=== PATIENT | male | born 1955 | race Caucasian/White ===

== ENCOUNTER 2016-11-11 07:25 | Emergency (ER) | payer OTHER ==
--- NOTE | 2016-11-11 07:50 | EDM.PDOC ---
[id number] 4d RIGHT SHOULDER INJURY Time Seen by Provider: 11/11/16 07:48 Source: Reports: Patient History Limitations: Reports: No limitations - History of Present Illness INITIAL COMMENTS - FREE TEXT/NARRATIVE: 61-year-old male reports that he slipped and fell on the icy stairs while walking down the spotting with coffee in his right hand. Landed hard on his right elbow. He suffers pain in the proximal aspect of his right humerus. Denies hitting his head or hurting his neck or ribs. When the pain is in the right upper shoulder area. He is unable to abduct the arm. Of note he is right- hand dominant. Injury occurred about 0710 hours. Patient took 3 aspirins after injury and states that it seems to be helping the pain somewhat. Symptom Onset Date: 11/11/16 Symptom Onset Time: 07:10 Occurred When: just prior to arrival Occurred Where: other Method of Injury: fall Severity: moderate Pain/Injury Location: Reports: upper extremity, right (Right upper chimney proximal humerus area.) Consciousness: Reports: no loss of consciousness, remembers incident, remembers coming to hosp Associated Symptoms: Reports: no other symptoms Allergies/ADRs: Allergies No Known Allergies Allergy (Verified 11/11/16 07:34) Home Medications: Ambulatory Orders Bp Pill? 11/11/16 oxyCODONE HCl/Acetaminophen [Percocet 5-325 mg Tablet] 1 - 2 each PO Q4H PRN # 20 tablet 11/11/16 Past Medical History Cardiovascular History: Reports: Hypertension Social & Family History - Living Situation & Occupation Occupation: employed Review of Systems - Review of Systems Review Of Systems: See Below Constitutional: Reports: no symptoms Eyes: Reports: no symptoms Ears: Reports: no symptoms Nose: Reports: no symptoms Mouth/Throat: Reports: no symptoms Respiratory: Reports: No Symptoms Cardiovascular: Reports: no symptoms GI/Abdominal: Reports: No symptoms Genitourinary: Reports: no symptoms Musculoskeletal: Reports: other (Right upper) Skin: Reports: no symptoms ( arm pain. See history of present illness) Neurological: Reports: No Symptoms Psychiatric: Reports: no symptoms Trauma Exam - Physical Exam Exam: See Below Exam Limited By: Other General Appearance: Reports: WD/WN, mild distress Head: Reports: atraumatic, normocephalic Throat/Mouth: Reports: Normal inspection, Normal lips, Normal oropharynx Neck: Reports: non-tender, full range of motion, normal alignment, normal inspection Respiratory Exam: Reports: no respiratory distress, lungs clear, normal breath sounds, no accessory muscle use Cardiovascular: Reports: normal peripheral pulses, regular rate, rhythm, no edema, no gallop, no murmur GI/Abdominal: Reports: normal bowel sounds, soft, non tender, no organomegaly Back: Reports: full range of motion, normal inspection, non-tender. Denies: CVA tenderness (R), CVA tenderness (L) Extremities: Reports: other (Attention to the right upper extremity reveals good pulses at the wrist. He has full pronation supination at the elbow. He is unable to abduct the arm without severe pain in the shoulder. Palpation of the clavicle appears to be intact there is no pain localized to the a.c. joint. Pain appears to be localized to the surgical much of the humerus.) Skin: Reports: Normal color, Warm/dry - [place] Coma Score Best Eye Response ([place]): (4) open spontaneously Best Verbal Response ([place]): (5) oriented Best Motor Response ([place]): (6) obeys commands [place] Total: 15 Course - Vital Signs Last Recorded V/S: Last Vital Signs Temp 36.3 C 11/11/16 07:34 Pulse 70 11/11/16 10:20 Resp 16 11/11/16 10:20 BP 171/99 H 11/11/16 10:20 Pulse Ox 96 11/11/16 10:20 - Orders/Labs/Meds Orders: Active Orders 24 hr Category Date Time Status Shoulder wo Cont Rt [CT] Stat Exams 11/11/16 08:27 Taken - Radiology Interpretation Free Text/Narrative:: 61-year-old male presents the ED after slipping and falling down 2 stairs this morning. He landed on his right elbow but has pain in the proximal aspect of his right humerus. He is unable to abduct the arm since injury. Injury occurred about 0710 hours this morning. No other injuries could be identified on examination. - Re-Assessments/Exams Free Text/Narrative Re-Assessment/Exam: 11/11/16 08:28 x-rays of the right humerus do not reveal any obvious fractures of the surgical neck or humeral head. There is one view that suggests humeral head may be a little bit more posterior than one would expect. 2 wide view is not done. On reassessment the patient is unable to dorsiflex at all and unable to abduct more than 40. Therefore CT of his humerus and shoulder to be done. 11/11/16 10:00 CT of the right shoulder did not reveal any fractures. There some degenerative changes at the acromioclavicular joint as well as in the humeral head but no discrete fractures. Therefore the patient will be placed in a shoulder immobilizer for the next week to 7 days and then have him reassessed as far as rotator cuff range of motion in 10 days' time. Will give him Percocet tabs 5-325 one or 2 or 4-6 hours for pain relief. Advised Aleve 2 tablets every 8 hours for pain relief and inflammation relief. Advised followup with orthopedic surgeon in 12-14 days time for assessment of range of motion and rotator cuff assessment. Departure - Departure Time of Disposition: 10:01 Disposition: Home, Self-Care 01 Condition: fair Clinical Impression: Strain of right shoulder Qualifiers: Encounter type: initial encounter Qualified Code(s): S46.911A - Strain of unspecified muscle, fascia and tendon at shoulder and upper arm level, right arm , initial encounter Prescriptions: oxyCODONE HCl/Acetaminophen [Percocet 5-325 mg Tablet] 1 - 2 each PO Q4H PRN # 20 tablet PRN Reason: pain relief. Instructions: Muscle Strain, [id number] Referrals: Daniel Mari MD [Primary Care Provider] - Forms: ED Department Discharge Additional Instructions: Evaluation in the emergency department today after slipping and falling with direct blow to the right elbow and injury to the upper right arm shoulder area. Range of motion is substantially reduced with inability to forward flex or abduct past 40. X-rays did not reveal any obvious fractures. CT scan was done to rule out a posterior dislocation of the shoulder and none was identified. Also CT did not identify any hairline fractures that were not visualized on plain films. Therefore injury appears to be strain. Plan right shoulder immobilizer on during the day and off at night or may wear to bed as well if more carpal. Suggest using this for 3-7 days. If you do not have full range of motion of your shoulder by dates and then suggest followup with orthopedic surgeon so that rotator cuff tendons can be assessed. Suggest Aleve 2 tablets every 8 hours to relieve pain and inflammation. Percocet tablets 5 325 mg one or 2 every 4-6 hours for pain not relieved by Aleve alone. Of note cannot take strong pain medication if you're operating a motor vehicle et cetera. Ice pack to the shoulder for one half hour out of every 4 hours today and tomorrow may reduce the swelling in the deltoid musculature. - My Orders Last 24 Hours: My Active Orders 11/11/16 08:27 Shoulder wo Cont Rt [CT] Stat - Assessment/Plan Last 24 Hours: My Active Orders 11/11/16 08:27 Shoulder wo Cont Rt [CT] Stat
--- NOTE | 2016-11-11 08:39 | CR ---
Right humerus: 2 views of the right humerus were obtained. Comparison: No previous study. No fracture or other bony abnormality is seen. Impression: 1. No bony abnormality is seen on right humerus study. Diagnostic code #1
[2016-11-11 10:31] VITALS: BP 171/99
--- NOTE | 2016-11-12 06:43 | CT ---
CT right shoulder Technique: Multiple axial sections were obtained through the right shoulder. Reconstructed coronal and sagittal images were reviewed. Comparison: Previous right humerus study performed earlier on the same day. Findings: Clavicle shows no fracture. Upper visualized ribs appear intact. Upper right lung is clear. Scapula shows no fracture. Small degenerative cyst is noted within the anterior glenoid. Small cyst also seen within the undersurface of the acromion process. No fracture is seen within the proximal humerus. Impression: 1. Small degenerative cyst within the anterior glenoid and within the undersurface of the acromion process. 2. Nothing acute is identified on CT study of the right shoulder. Diagnostic code #2 MTDD
== END 2016-11-11 10:20 | disposition home or self-care (01) ==
LOC: JD.ED 07:25
DX: S46.911A Strain of unspecified muscle, fascia and tendon at shoulder and upper arm level, right arm, initial encounter (principal); W10.8XXA Fall (on) (from) other stairs and steps, initial encounter; I10 Essential (primary) hypertension
CPT/HCPCS: 73060-26-RT; 73060-RT; 73200-26-RT; 73200-RT; 99283

== ENCOUNTER 2017-04-11 00:01 | Emergency (ER) | payer OTHER ==
[2017-04-11 00:10] VITALS: BP 190/102
--- NOTE | 2017-04-11 00:25 | EDM.PDOC ---
ED HPI GENERAL MEDICAL PROBLEM - General Chief Complaint: Gastrointestinal Problem Stated Complaint: [facility] Time Seen by Provider: 04/11/17 00:02 Source of Information: Reports: Patient History Limitations: Reports: No Limitations - History of Present Illness INITIAL COMMENTS - FREE TEXT/NARRATIVE: This is a 61-year-old male. He's been having intermittent left lower abdominal pain for the last several days. Around 2:30 PM today marked increased pain in the left lower quadrant with tenderness. There was no nausea vomiting no diarrhea no blood in his stools and no constipation. She denies any fever or chills. Since 2:30 PM the pain is gotten severe enough to come to the ER. He has a history of diverticulitis with a rupture back in 2011 requiring surgery. He is not certain whether this was going on now and he does have a history of kidney stones in the past but he says it doesn't feel like a kidney stone. He denies any other acute symptoms recently. Treatments [facility]AM[employer]TER [employer]: Reports: NSAIDS - Related Data Allergies Allergy/AdvReac Type Severity Reaction Status Date / Time No Known Allergies Allergy Verified 11/11/16 07:34 Home Meds: Home Meds oxyCODONE HCl/Acetaminophen [Percocet 5-325 mg Tablet] 1 - 2 each PO Q4H PRN # 20 tablet 11/11/16 [Rx] Losartan [Cozaar] 100 mg PO DAILY 04/11/17 [History] Past Medical History Cardiovascular History: Reports: Hypertension Gastrointestinal History: Reports: Diverticulosis - Infectious Disease History Infectious Disease History: Reports: Chicken Pox - Past Surgical History HEENT Surgical History: Reports: Oral Surgery GI Surgical History: Reports: Other (See Below) Other GI Surgeries/Procedures: rupture repair of diverticuli Musculoskeletal Surgical History: Reports: Joint Replacement, Shoulder Replacement Social & Family History - Family History Family Medical History: Noncontributory - Tobacco Use Smoking Status *Q: Current Every Day Smoker Years of Tobacco use: 30 Packs/Tins Daily: 0.2 Second Hand Smoke Exposure: No - Caffeine Use Caffeine Use: Reports: Coffee - Recreational Drug Use Recreational Drug Use: No - Living Situation & Occupation Occupation: Employed ED ROS GENERAL - Review of Systems Review Of Systems: See Below Constitutional: Denies: Fever, Chills HEENT: Reports: No Symptoms Respiratory: Reports: No Symptoms Cardiovascular: Reports: No Symptoms Endocrine: Reports: No Symptoms GI/Abdominal: Reports: Abdominal Pain. Denies: Black Stool, Bloody Stool, Constipation, Diarrhea, Nausea, Vomiting : Reports: No Symptoms Musculoskeletal: Reports: No Symptoms Skin: Reports: No Symptoms Neurological: Reports: No Symptoms Psychiatric: Reports: No Symptoms Hematologic/Lymphatic: Reports: No Symptoms ED EXAM, GI/ABD - Physical Exam Exam: See Below Exam Limited By: No Limitations General Appearance: Alert, WD/WN, Mild Distress Eyes: Bilateral: Normal Appearance Ears: Normal External Exam Nose: Normal Inspection Throat/Mouth: Normal Lips, Normal Voice, No Airway Compromise Head: Normocephalic Neck: Supple Respiratory/Chest: No Respiratory Distress, Lungs Clear, Normal Breath Sounds Cardiovascular: Regular Rate, Rhythm, No Murmur GI/Abdominal Exam: Other (Bowel sounds are absent, he seems to be tender all over but markedly so in the left lower quadrant with guarding and some mild rigidity noted, I could not determine if he has rebound because he kept pushing my hand away, he also has soreness in the right lower quadrant but pushing on the right lower quadrant makes the left lower quadrant seemed to hurt more) Back Exam: Full Range of Motion Extremities: Normal Inspection, Normal Range of Motion Neurological: Alert, Oriented Psychiatric: Anxious Skin Exam: Warm, Dry Course - Vital Signs Last Recorded V/S: Last Vital Signs Temp 97.9 F 04/11/17 00:03 Pulse 60 04/11/17 00:03 Resp 17 04/11/17 00:03 BP 190/102 H 04/11/17 00:03 Pulse Ox 92 L 04/11/17 00:03 - Orders/Labs/Meds Orders: Active Orders 24 hr Category Date Time Status Abdomen Pelvis w Cont [CT] Stat Exams 04/11/17 00:21 Taken CULTURE BLOOD [BC] Stat Lab 04/11/17 03:09 Received CULTURE BLOOD [BC] Stat Lab 04/11/17 03:15 Received Sodium Chloride 0.9% [Saline Flush] Med 04/11/17 01:30 Active 10 ml FLUSH ONETIME PRN Blood Culture x2 Reflex Set [OM.PC] Stat Oth 04/11/17 02:47 Ordered Medication Orders Sodium Chloride (Saline Flush) 10 ml FLUSH ONETIME PRN PRN Reason: IV FLUSH Last Admin: 04/11/17 02:03 Dose: 10 ml Labs: Laboratory Tests 04/11/17 04/11/17 Range/Units 00:36 00:36 WBC 19.62 H (4.23-9.07) K/mm3 RBC 5.44 (4.63-6.08) M/mm3 Hgb 16.0 (13.7-17.5) gm/L Hct 47.1 (40.1-51.0) % MCV 86.6 (79.0-92.2) fl MCH 29.4 (25.7-32.2) pg MCHC 34.0 (32.2-35.5) g/dl RDW Std Deviation 41.7 (35.1-43.9) fL Plt Count 254 (163-337) K/mm3 MPV 9.3 L (9.4-12.3) fl Neut % (Auto) 92.0 H (34.0-67.9) % Lymph % (Auto) 4.1 L (21.8-53.1) % [place] % (Auto) 3.4 L (5.3-12.2) % Eos % (Auto) 0.1 L (0.8-7.0) Baso % (Auto) 0.1 (0.1-1.2) % Neut # (Auto) 18.07 H (1.78-5.38) K/mm3 Lymph # (Auto) 0.80 L (1.32-3.57) K/mm3 [place] # (Auto) 0.67 (0.30-0.82) K/mm3 Eos # (Auto) 0.01 L (0.04-0.54) K/mm3 Baso # (Auto) 0.02 (0.01-0.08) K/mm3 Manual Slide Review Normal smear Sodium 138 (136-145) mEq/L Potassium 4.2 (3.5-5.1) mEq/L Chloride 103 (98-107) mEq/L Carbon Dioxide 26 (21-32) mEq/L Anion Gap 13.2 (5-15) BUN 22 H (7-18) mg/dL Creatinine 1.3 (0.7-1.3) mg/dL Est Cr Clr Drug Dosing 53.85 mL/min Estimated GFR (MDRD) 56 (>60) mL/min BUN/Creatinine Ratio 16.9 (14-18) Glucose 172 H (80-115) mg/dL Calcium 9.3 (8.5-10.1) mg/dL Total Bilirubin 0.6 (0.2-1.0) mg/dL AST 16 (15-37) U/L ALT 23 (16-63) U/L Alkaline Phosphatase 101 (46-116) U/L Total Protein 8.4 H (6.4-8.2) g/dl Albumin 4.6 (3.4-5.0) g/dl Globulin 3.8 gm/dL Albumin/Globulin Ratio 1.2 (1-2) Lipase 129 (73-393) U/L Meds: Medications Generic Name Dose Route Start Last Admin Trade Name Freq PRN Reason Stop Dose Admin Sodium Chloride 10 ml 04/11/17 01:30 04/11/17 02:03 Saline Flush FLUSH 10 ml ONETIME PRN Administration IV FLUSH Discontinued Medications Generic Name Dose Route Start Last Admin Trade Name Freq PRN Reason Stop Dose Admin Diatrizoate Meglum/Diatrizoate Sod 90 ml 04/11/17 01:30 04/11/17 02:03 Gastrografin 37% PO 04/11/17 01:31 90 ml ONETIME ONE Administration Hydromorphone HCl 1 mg 04/11/17 02:24 04/11/17 02:30 Dilaudid IVPUSH 04/11/17 02:25 1 mg ONETIME ONE Administration Levofloxacin/Dextrose 750 mg/ 150 mls @ 100 mls/hr 04/11/17 02:50 04/11/17 03 :18 Premix IV 04/11/17 04:19 100 mls/hr ONETIME ONE Administration Iopamidol 125 ml 04/11/17 01:30 04/11/17 02:02 Isovue-300 (61%) IVPUSH 04/11/17 01:31 125 ml ONETIME ONE Administration - Radiology Interpretation Free Text/Narrative:: CT scan of the abdomen with contrast shows a duplex left kidney with moderate to severe left-sided hydronephrosis and it looks to be acute on chronic UPJ obstruction there is some perinephric stranding that left kidney suggesting infection - Re-Assessments/Exams Free Text/Narrative Re-Assessment/Exam: 04/11/17 03:39 I spoke to the patient regarding the CT scan results and the blood work. He wishes to be transferred down to [facility] for further evaluation and treatment. I spoke to Dr. Nieves as well as the urologist Dr. Montejo regarding the patient and Dr. Nieves agrees to accept the patient in transport from our facility to [facility]. He will be a direct admit. 04/11/17 04:30 [place] [facility] here to transport the patient to [facility] Departure - Departure Time of Disposition: 03:41 Disposition: DC/Tfer to [facility] 02 Condition: Good Clinical Impression: Hydronephrosis, left, Pyelonephritis, acute, Left sided abdominal pain Leukocytosis Qualifiers: Leukocytosis type: unspecified Qualified Code(s): D72.829 - Elevated white blood cell count, unspecified - Discharge Information Additional Instructions: I spoke with Dr. Nieves and she agrees to accept the patient in transport for further evaluation and treatment as a direct admit. ED Communication - ED Communication Date/Time Date: 04/11/17 Time Called: 03:43 - Discussed Case With (1) Discussed Case With (1): Admitting Provider Person/s Notified (1): Dr. Nieves (Agrees to accept in transport) - My Orders Last 24 Hours: My Active Orders 04/11/17 00:21 Abdomen Pelvis w Cont [CT] Stat 04/11/17 01:30 Sodium Chloride 0.9% [Saline Flush] 10 ml FLUSH ONETIME PRN 04/11/17 02:47 Blood Culture x2 Reflex Set [OM.PC] Stat 04/11/17 03:09 CULTURE BLOOD [BC] Stat 04/11/17 03:15 CULTURE BLOOD [BC] Stat - Assessment/Plan Last 24 Hours: My Active Orders 04/11/17 00:21 Abdomen Pelvis w Cont [CT] Stat 04/11/17 01:30 Sodium Chloride 0.9% [Saline Flush] 10 ml FLUSH ONETIME PRN 04/11/17 02:47 Blood Culture x2 Reflex Set [OM.PC] Stat 04/11/17 03:09 CULTURE BLOOD [BC] Stat 04/11/17 03:15 CULTURE BLOOD [BC] Stat
[2017-04-11] MEDS ORDERED: Diatrizoate Meglumine/Diatrizoate Sodium 37% 120 ML Bottle PO ONE (01:30)
[2017-04-11] MEDS ORDERED: Sodium Chloride 0.9% 10 ML Syringe FLUSH PRN (01:30)
[2017-04-11] MEDS ORDERED: Iopamidol 612 MG/ML 150 ML Bottle IVPUSH ONE (01:30)
[2017-04-11] MEDS ORDERED: HYDROmorphone 1 MG/ML Syringe IVPUSH ONE (02:24)
[2017-04-11] MEDS ORDERED: Levofloxacin/Dextrose 5%-Water 750 MG in Premix Bag 1 BAG IV ONE (02:50)
--- NOTE | 2017-04-12 17:59 | CT ---
CT abdomen and pelvis Technique: Multiple axial sections were obtained from above the dome of the diaphragm inferiorly through the pubic symphysis. Delayed images were also obtained through the abdomen and pelvis. Comparison: Previous noncontrast CT abdomen and pelvis exam of 03/28/12. Findings: Small portion of the visualized lung bases shows nothing acute. Small low-density lesion is noted within the upper right lobe of the liver measuring approximately 8 mm. This is increased in size from prior CT exam but most likely due to small cyst. Larger abnormality identified more inferiorly within the right lobe of the liver measuring 2.5 cm which becomes isodense to the liver on delayed images most likely due to hemangioma although further follow-up will be suggested. No additional abnormality appreciated within the liver. Spleen appears within normal limits. Parapelvic cysts are noted within both kidneys. Left kidney shows a duplicated collecting system. Extrarenal pelvis is noted of the lower pole moiety which is dilated which is felt to represent chronic UPJ functional obstruction. Current study also shows an obstructing stone within the proximal left ureter involving the lower pole moiety. This stone measures about 4 mm. Right kidney also shows duplicated collecting system. Delayed images shows contrast excretion into 2 ureters on the right side which appear to join slightly proximal to the UVJ. Contrast is seen within a nondilated upper pole collecting system of the left kidney. No contrast is seen within the obstructed lower pole left ureter. Adrenal glands show no nodule. Pancreas is within normal limits. Aorta shows no aneurysmal dilatation. No retroperitoneal adenopathy or mesenteric abnormalities are seen. No pelvic mass or adenopathy is seen. Slight calcification seen within the prostate gland. No small bowel dilatation is seen. Appendix is not visualized with certainty. Previous surgery is noted with anastomotic surgical clips within the sigmoid colon. Bone window settings were reviewed which show minimal degenerative change within the spine primarily at L5-S1. Impression: 1. 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 Bilateral parapelvic cyst. 2. Extrarenal pelvis is noted of the lower pole moiety on the left side. Functional UPJ obstruction is present on the left side. Acute obstruction also noted within the lower pole moiety within the proximal left ureter secondary to a 4 mm obstructing stone. 3. 2.5 cm abnormality within the inferior right liver suspicious for hemangioma although nuclear medicine RBC SPECT study is recommended to confirm as this finding is not seen on prior 4. CT exam. Other incidental findings as noted above Diagnostic code #9 I agree with preliminary report issued by [facility] ([facility] preliminary report dictated on 04/11/17, 3:35 AM Central Time)
== END 2017-04-11 04:45 ==
LOC: JD.ED 00:01
DX: N13.2 Hydronephrosis with renal and ureteral calculous obstruction (principal); N12 Tubulo-interstitial nephritis, not specified as acute or chronic; D72.829 Elevated white blood cell count, unspecified; F17.210 Nicotine dependence, cigarettes, uncomplicated; I10 Essential (primary) hypertension; Z96.619 Presence of unspecified artificial shoulder joint
CPT/HCPCS: 36415; 74177; 80053; 83690; 85025; 87040; 96365; 96375; 99285; J1170; J1956; J7050; Q9963; Q9967; 99284

== ENCOUNTER 2019-09-02 13:45 | Emergency (ER) | payer OTHER ==
[2019-09-02 13:57] VITALS: BP 160/105; PULSE 74
[2019-09-02] MEDS ORDERED: Morphine 4 MG/ML Syringe IVPUSH ONE (14:12)
[2019-09-02] MEDS ORDERED: Sodium Chloride 0.9% 10 ML Syringe FLUSH PRN (14:12)
[2019-09-02] MEDS ORDERED: Ondansetron 4 MG/2 ML SDV IVPUSH ONE (14:12)
--- NOTE | 2019-09-02 14:31 | EDM.PDOC ---
ED HPI GENERAL MEDICAL PROBLEM - General Chief Complaint: Abdominal Pain Stated Complaint: ABDOMINAL PAIN Time Seen by Provider: 09/02/19 14:08 Source of Information: Reports: Patient History Limitations: Reports: No Limitations - History of Present Illness INITIAL COMMENTS - FREE TEXT/NARRATIVE: Patient's unfortunate 64-year-old male who presents emergency Department today with complaint of pain. Patient reports that symptoms started 4 days ago and progressively worsened since. Patient reports the pain is sharp stabbing type pain pain is worse with palpation or deep inspiration improves with rest does not alleviate. Patient reports pain is similar to previous episodes of diverticulitis for which she had a colectomy in the past. No nausea , no vomiting, no fever, no chills, no shortness of breath Abdomen Pain Score (Numeric/FACES): 1 - Related Data Allergies Allergy/AdvReac Type Severity Reaction Status Date / Time Iodinated Contrast Media Allergy Hives Verified 09/02/19 13:57 Home Meds: Home Meds Acetaminophen with Codeine [Tylenol with Codeine #3 Tablet] 1 each PO Q4H PRN # 12 tablet 09/02/19 [Rx] Apixaban [Eliquis] 5 mg PO DAILY 09/02/19 [History] Ciprofloxacin HCl [Cipro] 500 mg PO BID #14 tablet 09/02/19 [Rx] Furosemide [Lasix] 40 mg PO DAILY 09/02/19 [History] Losartan [Cozaar] 100 mg PO DAILY 09/02/19 [History] Potassium Chloride 20 mg PO DAILY 09/02/19 [History] Sotalol [Betapace] 120 mg PO DAILY 09/02/19 [History] metroNIDAZOLE [Flagyl] 500 mg PO Q8H #21 tab 09/02/19 [Rx] Past Medical History HEENT History: Reports: None Cardiovascular History: Reports: Afib, Hypertension Other Cardiovascular History: controlled a fib Respiratory History: Reports: Pneumonia, Recurrent Gastrointestinal History: Reports: Diverticulosis Genitourinary History: Reports: None Musculoskeletal History: Reports: None Neurological History: Reports: None Psychiatric History: Reports: None Endocrine/Metabolic History: Reports: None Hematologic History: Reports: None Immunologic History: Reports: None Oncologic (Cancer) History: Reports: None Dermatologic History: Reports: None - Infectious Disease History Infectious Disease History: Reports: Chicken Pox - Past Surgical History Head Surgeries/Procedures: Reports: None HEENT Surgical History: Reports: Oral Surgery Cardiovascular Surgical History: Reports: None Respiratory Surgical History: Reports: None GI Surgical History: Reports: Other (See Below) Other GI Surgeries/Procedures: rupture repair of diverticuli Male Surgical History: Reports: None Endocrine Surgical History: Reports: None Neurological Surgical History: Reports: None Musculoskeletal Surgical History: Reports: Joint Replacement, Shoulder Replacement Oncologic Surgical History: Reports: None Dermatological Surgical History: Reports: None Social & Family History - Family History Family Medical History: Noncontributory - Tobacco Use Smoking Status *Q: Never Smoker Second Hand Smoke Exposure: No - Caffeine Use Caffeine Use: Reports: Coffee - Recreational Drug Use Recreational Drug Use: No - Living Situation & Occupation Occupation: Employed ED ROS GENERAL - Review of Systems Review Of Systems: See Below Constitutional: Denies: Fever, Chills GI/Abdominal: Reports: Abdominal Pain. Denies: Nausea, Vomiting ED EXAM, GI/ABD - Physical Exam Exam: See Below Exam Limited By: No Limitations General Appearance: Alert, WD/WN, Mild Distress Throat/Mouth: Normal Inspection, Normal Lips, Normal Teeth, Normal Gums, Normal Oropharynx, Normal Voice, No Airway Compromise Head: Atraumatic, Normocephalic Neck: Normal Inspection, Supple, Non-Tender, Full Range of Motion Respiratory/Chest: No Respiratory Distress, Lungs Clear, Normal Breath Sounds, No Accessory Muscle Use, Chest Non-Tender Cardiovascular: Normal Peripheral Pulses, Regular Rate, Rhythm, No Edema, No Gallop, No JVD, No Murmur, No Rub GI/Abdominal Exam: Normal Bowel Sounds, Soft, Tender (RLQ moderate with guarding ) Back Exam: Normal Inspection, Full Range of Motion, NT Extremities: Normal Inspection, Normal Range of Motion, Non-Tender, Normal Capillary Refill, No Pedal Edema Neurological: Alert Skin Exam: Warm, Dry Course - Vital Signs Last Recorded V/S: Last Vital Signs Temp 97.4 F 09/02/19 13:54 Pulse 74 09/02/19 13:54 Resp 16 09/02/19 13:54 BP 160/105 H 09/02/19 13:54 Pulse Ox 96 09/02/19 13:54 - Orders/Labs/Meds Orders: Active Orders 24 hr Category Date Time Status Sodium Chloride 0.9% [Saline Flush] Med 09/02/19 14:12 Active 10 ml FLUSH ASDIRECTED PRN Saline Lock Insert [OM.PC] Stat Oth 09/02/19 14:12 Ordered Medication Orders Sodium Chloride (Saline Flush) 10 ml FLUSH ASDIRECTED PRN PRN Reason: Keep Vein Open Last Admin: 09/02/19 15:29 Dose: 10 ml Labs: Laboratory Tests 09/02/19 09/02/19 09/02/19 Range/Units 14:40 14:40 16:56 WBC 10.29 H (4.23-9.07) K/mm3 RBC 5.40 (4.63-6.08) M/mm3 Hgb 15.5 (13.7-17.5) gm/dl Hct 46.7 (40.1-51.0) % MCV 86.5 (79.0-92.2) fl MCH 28.7 (25.7-32.2) pg MCHC 33.2 (32.2-35.5) g/dl RDW Std Deviation 40.7 (35.1-43.9) fL Plt Count 242 (163-337) K/mm3 MPV 9.5 (9.4-12.3) fl Neut % (Auto) 69.5 H (34.0-67.9) % Lymph % (Auto) 20.6 L (21.8-53.1) % Kerr % (Auto) 8.4 (5.3-12.2) % Eos % (Auto) 1.2 (0.8-7.0) Baso % (Auto) 0.2 (0.1-1.2) % Neut # (Auto) 7.16 H (1.78-5.38) K/mm3 Lymph # (Auto) 2.12 (1.32-3.57) K/mm3 Kerr # (Auto) 0.86 H (0.30-0.82) K/mm3 Eos # (Auto) 0.12 (0.04-0.54) K/mm3 Baso # (Auto) 0.02 (0.01-0.08) K/mm3 Manual Slide Review Abnormal smear Sodium 137 (136-145) mEq/L Potassium 3.9 (3.5-5.1) mEq/L Chloride 99 (98-107) mEq/L Carbon Dioxide 28 (21-32) mEq/L Anion Gap 13.9 (5-15) BUN 18 (7-18) mg/dL Creatinine 1.1 (0.7-1.3) mg/dL Est Cr Clr Drug Dosing 61.22 mL/min Estimated GFR (MDRD) > 60 (>60) mL/min BUN/Creatinine Ratio 16.4 (14-18) Glucose 99 (80-115) mg/dL Calcium 8.8 (8.5-10.1) mg/dL Total Bilirubin 0.6 (0.2-1.0) mg/dL AST 14 L (15-37) U/L ALT 27 (16-63) U/L Alkaline Phosphatase 102 (46-116) U/L Total Protein 7.8 (6.4-8.2) g/dl Albumin 4.0 (3.4-5.0) g/dl Globulin 3.8 gm/dL Albumin/Globulin Ratio 1.1 (1-2) Urine Color Yellow (Yellow) Urine Appearance Clear (Clear) Urine pH 7.0 (5.0-8.0) Ur Specific Williamson 1.025 (1.005-1.030) Urine Protein Trace H (Negative) Urine Glucose (UA) Negative (Negative) Urine Ketones Trace H (Negative) Urine Occult Blood Negative (Negative) Urine Nitrite Negative (Negative) Urine Bilirubin Negative (Negative) Urine Urobilinogen 0.2 (0.2-1.0) Ur Leukocyte Esterase Negative (Negative) Urine RBC 0-5 (0-5) /hpf Urine WBC 0-5 (0-5) /hpf Ur Squamous Epith Cells Not seen (0-5) /hpf Urine Bacteria Occasional (FEW) /hpf Urine Mucus Few (FEW) /hpf Meds: Medications Generic Name Dose Route Start Last Admin Trade Name Freq PRN Reason Stop Dose Admin Sodium Chloride 10 ml 09/02/19 14:12 09/02/19 15:29 Saline Flush FLUSH 10 ml ASDIRECTED PRN Administration Keep Vein Open Discontinued Medications Generic Name Dose Route Start Last Admin Trade Name Freq PRN Reason Stop Dose Admin Morphine Sulfate 4 mg 09/02/19 14:12 09/02/19 14:43 Morphine IVPUSH 09/02/19 14:13 4 mg ONETIME ONE Administration Ondansetron HCl 4 mg 09/02/19 14:12 09/02/19 14:42 Zofran IVPUSH 09/02/19 14:13 4 mg ONETIME ONE Administration - Re-Assessments/Exams Free Text/Narrative Re-Assessment/Exam: 09/02/19 16:00 CT abdomen and pelvis "impression: #1 multiple findings as noted above. #2 nothing acute is appreciated on noncontrast CT study of abdomen and pelvis." Departure - Departure Time of Disposition: 17:33 Disposition: Home, Self-Care 01 Clinical Impression: Diverticulitis Abdominal pain Qualifiers: Abdominal location: right lower quadrant Qualified Code(s): R10.31 - Right lower quadrant pain - Discharge Information Prescriptions: Acetaminophen with Codeine [Tylenol with Codeine #3 Tablet] 1 each PO Q4H PRN # 12 tablet PRN Reason: Pain Ciprofloxacin HCl [Cipro] 500 mg PO BID #14 tablet metroNIDAZOLE [Flagyl] 500 mg PO Q8H #21 tab Instructions: Diverticulitis Referrals: PCP,None [Primary Care Provider] - Forms: ED Department Discharge, ED Return to Work/School Form Additional Instructions: Home, rest, adequate fluids, return as needed for worsening condition Sepsis Event Note - Evaluation Sepsis Screening Result: No Definite Risk - Focused Exam Vital Signs: Vital Signs Temp Pulse Resp BP Pulse Ox 09/02/19 13:54 97.4 F 74 16 160/105 H 96 Date Exam was Performed: 09/02/19 Time Exam was Performed: 17:33 - My Orders Last 24 Hours: My Active Orders 09/02/19 14:12 Sodium Chloride 0.9% [Saline Flush] 10 ml FLUSH ASDIRECTED PRN Saline Lock Insert [OM.PC] Stat - Assessment/Plan Last 24 Hours: My Active Orders 09/02/19 14:12 Sodium Chloride 0.9% [Saline Flush] 10 ml FLUSH ASDIRECTED PRN Saline Lock Insert [OM.PC] Stat
--- NOTE | 2019-09-02 15:22 | CT ---
CT abdomen and pelvis Technique: Multiple axial sections were obtained from above the dome of the diaphragm inferiorly through the pubic symphysis. Intravenous contrast not utilized. Oral contrast has been given. Findings: Multiple parapelvic cysts are seen within the kidneys. Dilated extrarenal pelvis on the left side which is felt to be normal variant. No ureteral dilatation or ureteral stone is seen. Visualized lung bases show nothing acute. Cyst is noted within the right lobe of the liver measuring 1.2 cm in size. Low-density lesion within the inferior right lobe of the liver believed to be stable from prior CT exam. Spleen appears within normal limits. Small hiatal hernia is noted. Pancreas is within normal limits. Gallbladder contains no calcified gallstones. Aorta shows no aneurysm. No retroperitoneal adenopathy or mesenteric abnormalities are seen. No pelvic mass or adenopathy is seen. Mild prostate calcifications are noted. No free fluid or inflammatory change is seen. Previous bowel surgery is noted involving the sigmoid colon. Appendix is felt to be partially visualized and within normal limits. Bone window settings were reviewed which shows disc space narrowing at L5-S1 with endplate osteophytes and vacuum phenomena. Impression: 1. Multiple findings as noted above. 2. Nothing acute is appreciated noncontrast CT study of the abdomen and pelvis. Diagnostic code #2 Study was dictated in [place] Standard Time
== END 2019-09-02 18:09 | disposition home or self-care (01) ==
LOC: JD.ED 13:45
DX: K57.92 Diverticulitis of intestine, part unspecified, without perforation or abscess without bleeding (principal); I10 Essential (primary) hypertension; I48.91 Unspecified atrial fibrillation; Z91.041 Radiographic dye allergy status; Z79.899 Other long term (current) drug therapy
CPT/HCPCS: 36415; 74176; 80053; 81001; 85025; 96374; 96375; 99284; J2270; J2405